=== PATIENT | male | born 1990 | race Hispanic/Latino ===

== ENCOUNTER 2019-02-05 09:42 | Emergency (ER) | payer SELFPAY ==
--- NOTE | 2019-02-05 10:20 | RAD ---
PORTABLE CHEST: 02/05/2019 PROVIDED CLINICAL HISTORY: Chest pain. COMPARISON: Examination performed earlier same date. CORRELATION: CT chest performed earlier same date. FINDINGS: The tiny left-sided pneumothorax described on the CT examination is not radiographically apparent. T he lungs are hypoinflated but grossly clear. No evidence for large effusion. The cardiac and medias tinal silhouette is within normal limits for the portable technique. IMPRESSION: The tiny left-sided pneumothorax described by CT is not apparent on this radiograph. POS: [facility]
--- NOTE | 2019-02-05 11:11 | RAD ---
LEFT SHOULDER THREE VIEWS: Indications: Shoulder pain. FINDINGS: No fracture or dislocation. AC joint normally aligned. IMPRESSION: No acute abnormality identified. POS: [facility]
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
== END 2019-02-05 14:19 | disposition home or self-care (01) ==
LOC: ERS 09:42
DX: S27.0XXA Traumatic pneumothorax, initial encounter (principal); V49.9XXA Car occupant (driver) (passenger) injured in unspecified traffic accident, initial encounter
CPT/HCPCS: 71045